=== PATIENT | male | born 1980 | race Caucasian/White ===

== ENCOUNTER 2017-05-26 23:58 | Emergency (ER) | payer SELFPAY ==
[~2017-05-26] VITALS: Ht 152.4 cm; Wt 76.9 kg
[2017-05-27 00:02] VITALS: Ht 152.4 cm; Wt 76.9 kg
[2017-05-27] MEDS ORDERED: ONDANSETRON 4 MG INJ IV STA (01:23)
[2017-05-27] MEDS ORDERED: SOD CHLORIDE 0.9% 1,000 ML IV STA (01:23)
--- NOTE | 2017-05-27 02:09 | RADRPT ---
PROCEDURE: Noncontrast CT Head. CLINICAL INDICATION: Headache TECHNIQUE: Noncontrast CT of the head was obtained. The administered radiation dose was CTDI vol = 45 mGy, DLP = 720 mGy-cm. One or more of the following dose reduction techniques were used: automate d exposure control, adjustment of the mA and/or kV according to patient size and/or use of iterative reconstruction technique. COMPARISON: No pertinent prior examinations were submitted for comparison. FINDINGS: The ventricles and sulci are within normal limits. There is no acute intracranial hemorrhage or ext ra-axial fluid collection. There is no mass effect. No midline shift is identified. There is no loss of whalen-white differentiation to suggest acute infarction. The orbits are within normal limits. The paranasal sinuses and mastoid air cells are without fluid. No destructive osseous lesion is identified. IMPRESSION: No acute findings. RPTAT: HIKT .Willy Reyez MD, MD Date Time Electronically viewed and signed by .Willy Reyez MD, MD on 05/27/2017 02:09 .T/
--- NOTE | 2017-05-27 02:18 | RADRPT ---
PROCEDURE: XR Chest. CLINICAL INDICATION: Headache. TECHNIQUE: Single frontal chest x-ray. COMPARISON: None. FINDINGS: The cardiomediastinal silhouette is unremarkable. There is no congestive heart failure.. No focal i nfiltrate is seen. There is no pleural effusion. There is no pneumothorax. The osseous structures are unremarkable. IMPRESSION: 1. No active disease. RPTAT: HMVK .Martell Farley MD, Date Time Electronically viewed and signed by .Martell Farley MD, MD on 05/27/2017 02:17 .K/
[2017-05-27] MEDS ORDERED: ONDA-43 PO (03:17)
[2017-05-27 03:28] VITALS: BP 110/63; PULSE 66; RESP 18; TEMP 98
--- NOTE | 2017-05-27 04:08 | ERD ---
ER Documentation Chief Complaint Chief Complaint vomiting off and on today. denies any abd pain. HPI This is a 36-year-old male presents to the ER with multiple complaints. Patient states that 10 AM he started feeling bad, so short of breath and vomited twice. Patient also had diarrhea however diarrhea resolved. Vomiting was nonbilious nonbloody. Patient denies any abdominal pain. He states that he feels like his arms and legs are asleep and he feels that his head is heavy patient denies any headache. Patient denies any chest pain. Shortness of breath is resolved. He has not had any fevers or chills. ROS 12 point review of systems was done, all negative except per HPI. Medications Home Meds Active Scripts Ondansetron Hcl* (Zofran*) 4 Mg Tab, 4 MG PO Q4H Y for NAUSEA AND OR VOMITING, # 8 TAB Prov:VIJAYA RAYMOND 05/27/17 Allergies Allergies: Coded Allergies: No Known Drug Allergy (Verified Allergy, Unknown, 05/27/17) PMhx/Soc Medical and Surgical Hx: pt denies Medical Hx, pt denies Surgical Hx History of Surgery: No Anesthesia Reaction: No Hx Neurological Disorder: No Hx Respiratory Disorders: No Hx Cardiac Disorders: No Hx Psychiatric Problems: No Hx Miscellaneous Medical Probl: No Hx Alcohol Use: No Hx Substance Use: No Hx Tobacco Use: No Smoking Status: Never smoker Physical Exam Vitals Vital Signs Date Time Temp Pulse Resp B/P Pulse Ox O2 Delivery O2 Flow Rate FiO2 05/27/17 03:28 98.0 66 18 110/63 99 Room Air 05/27/17 00:02 98.1 72 20 127/81 95 Physical Exam GENERAL: The patient is well developed and appropriate for usual state of health , in no apparent distress. HEENT: Atraumatic. Conjunctivae are pink. Pupils equal, round, and reactive to light. Extraocular muscles are grossly intact. Bilateral tympanic membranes are clear with no evidence of erythema, bulging or perforation. No sinus tenderness. NECK: C-spine is soft and supple. There is no cervical lymphadenopathy. CHEST: Clear to auscultation bilaterally. There are no rales, wheezes or rhonchi. HEART: Regular rate and rhythm. No murmurs, clicks, rubs or gallops. EXTREMITIES: Equal pulses bilaterally. There is no peripheral clubbing, cyanosis or edema. No focal swelling or erythema. Full range of motion. Grossly neurovascularly intact. NEURO: Alert and oriented. Cranial nerves II through XII are intact. Motor strength in all 4 extremities with 5/5 strength. Sensation grossly intact. Normal speech and gait. Negative Rhomberg. +2 DTRs. SKIN: There is no apparent rash or petechia. The skin is warm and dry. Result Diagram: 05/27/17 0201 05/27/17 0201 Results 24 hrs Laboratory Tests Test 05/27/17 02:01 White Blood Count 11.010^3/ul Red Blood Count 4.7210^6/ul Hemoglobin 14.5g/dl Hematocrit 40.7% Mean Corpuscular Volume 86.2fl Mean Corpuscular Hemoglobin 30.7pg Mean Corpuscular Hemoglobin Concent 35.6g/dl Red Cell Distribution Width 12.8% Platelet Count 44396^3/UL Mean Platelet Volume 9.9fl Neutrophils % 74.2% Lymphocytes % 20.4% Monocytes % 4.5% Eosinophils % 0.2% Basophils % 0.4% Nucleated Red Blood Cells % 0.0/100WBC Neutrophils # 8.210^3/ul Lymphocytes # 2.310^3/ul Monocytes # 0.510^3/ul Eosinophils # 0.010^3/ul Basophils # 0.010^3/ul Nucleated Red Blood Cells # 0.010^3/ul Sodium Level 141mmol/L Potassium Level 3.7mmol/L Chloride Level 103mmol/L Carbon Dioxide Level 25mmol/L Anion Gap 17 Blood Urea Nitrogen 10mg/dl Creatinine 0.80mg/dl Glucose Level 110mg/dl Calcium Level 9.5mg/dl Total Bilirubin 0.6mg/dl Direct Bilirubin 0.00mg/dl Indirect Bilirubin 0.6mg/dl Aspartate Amino Transf (AST/SGOT) 34IU/L Alanine Aminotransferase (ALT/SGPT) 69IU/L Alkaline Phosphatase 103IU/L Total Protein 8.5g/dl Albumin 4.7g/dl Globulin 3.80g/dl Albumin/Globulin Ratio 1.23 Current Medications Medications (Trade) Dose Ordered Sig/Sara Route PRN Reason Start Time Stop Time Status Last Admin Dose Admin Sodium Chloride (NS) 1,000 ml @ 1,000 mls/hr Q1H STAT IV 05/27/17 01:23 05/27/17 02:22 DC 05/27/17 01:55 Ondansetron HCl (Zofran Inj) 4 mg ONCE STAT IV 05/27/17 01:23 05/27/17 01:25 DC 05/27/17 01:[id number] [place] [address] Radiology Main Line: [phone] DIAGNOSTIC IMAGING REPORT Patient: KRYSTAL TREADWELL : 1980 Age: 36 Sex: M [id number] DOS: 05/27/17 0123 Ordering MD: VIJAYA RAYMOND PA-C Location: [facility] Room/Bed: PROCEDURE: Noncontrast CT Head. CLINICAL INDICATION: Headache TECHNIQUE: Noncontrast CT of the head was obtained. The administered radiation dose was CTDI vol = 45 mGy, DLP = 720 mGy-cm. One or more of the following dose reduction techniques were used: automated exposure control, adjustment of the mA and/or kV according to patient size and/or use of iterative reconstruction technique. COMPARISON: No pertinent prior examinations were submitted for comparison. FINDINGS: The ventricles and sulci are within normal limits. There is no acute intracranial hemorrhage or extra-axial fluid collection. There is no mass effect. No midline shift is identified. There is no loss of whalen-white differentiation to suggest acute infarction. The orbits are within normal limits. The paranasal sinuses and mastoid air cells are without fluid. No destructive osseous lesion is identified. IMPRESSION: No acute findings. RPTAT: HIKT .Willy Reyez MD, MD Date Time Electronically viewed and signed by .Willy Reyez MD, MD on 05/27/2017 02:09 .T/ CC: VIJAYA RAYMOND [facility] [id number] [place] [address] Radiology Main Line: [phone] DIAGNOSTIC IMAGING REPORT Patient: KRYSTAL TREADWELL : 1980 Age: 36 Sex: M MR #: [id number] DOS: 05/27/17 0123 Ordering MD: VIJAYA RAYMOND PA-C Location: [facility] Room/Bed: PROCEDURE: XR Chest. CLINICAL INDICATION: Headache. TECHNIQUE: Single frontal chest x-ray. COMPARISON: None. FINDINGS: The cardiomediastinal silhouette is unremarkable. There is no congestive heart failure.. No focal infiltrate is seen. There is no pleural effusion. There is no pneumothorax. The osseous structures are unremarkable. IMPRESSION: 1. No active disease. RPTAT: HMVK .Martell Farley MD, MD Date Time Electronically viewed and signed by .Martell Farley MD, MD on 05/27/2017 02:17 .K/ CC: VIJAYA RAYMOND Procedures/MDM This is a 36-year-old female presents to the ER with multiple complaints. Patient had episodes of vomiting and diarrhea which has now resolved. He also stated that his head felt heavy. Patient's physical examination is completely benign he does not have any focal neurological deficits, he is afebrile and well -appearing. Suspicion for acute intracranial pathology is low. Suspicion for meningitis or sepsis is low. In regards to patient's shortness of breath, etiology is unknown, however suspicion for pulmonary embolism is low he does not have any PERC criteria. An EKG was taken and read by T [address] elevation no T-wave inversion. Patient will be sent home with [facility]. He needs to follow-up with his primary care doctor within 1-2 days or return to ER sooner if symptoms worsen. My medical decision making sure with the patient understands and agrees with plan Departure Diagnosis: Primary Impression: Multiple complaints Condition: Stable Patient Instructions: Vomiting (7Y-Adult) Additional Instructions: Llame al doctor MAANA y brandi charu DONELL PARA DENTRO DE 1-2 SHELDON.Dgale a la secretaria que nosotros le instruimos hacer esta donell.Avise o llame si archer condicin se empeora antes de la donell. Regresa aqui si peor o no mejor. VIJAYA RAYMOND May 27, 2017 04:08
--- NOTE | 2017-05-27 04:08 | ERD ---
ER Documentation Chief Complaint Chief Complaint vomiting off and on today. denies any abd pain. HPI This is a 36-year-old male presents to the ER with multiple complaints. Patient states that 10 AM he started feeling bad, so short of breath and vomited twice. Patient also had diarrhea however diarrhea resolved. Vomiting was nonbilious nonbloody. Patient denies any abdominal pain. He states that he feels like his arms and legs are asleep and he feels that his head is heavy patient denies any headache. Patient denies any chest pain. Shortness of breath is resolved. He has not had any fevers or chills. ROS 12 point review of systems was done, all negative except per HPI. Medications Home Meds Active Scripts Ondansetron Hcl* (Zofran*) 4 Mg Tab, 4 MG PO Q4H Y for NAUSEA AND OR VOMITING, # 8 TAB Prov:VIJAYA RAYMOND 05/27/17 Allergies Allergies: Coded Allergies: No Known Drug Allergy (Verified Allergy, Unknown, 05/27/17) PMhx/Soc Medical and Surgical Hx: pt denies Medical Hx, pt denies Surgical Hx History of Surgery: No Anesthesia Reaction: No Hx Neurological Disorder: No Hx Respiratory Disorders: No Hx Cardiac Disorders: No Hx Psychiatric Problems: No Hx Miscellaneous Medical Probl: No Hx Alcohol Use: No Hx Substance Use: No Hx Tobacco Use: No Smoking Status: Never smoker Physical Exam Vitals Vital Signs Date Time Temp Pulse Resp B/P Pulse Ox O2 Delivery O2 Flow Rate FiO2 05/27/17 03:28 98.0 66 18 110/63 99 Room Air 05/27/17 00:02 98.1 72 20 127/81 95 Physical Exam GENERAL: The patient is well developed and appropriate for usual state of health , in no apparent distress. HEENT: Atraumatic. Conjunctivae are pink. Pupils equal, round, and reactive to light. Extraocular muscles are grossly intact. Bilateral tympanic membranes are clear with no evidence of erythema, bulging or perforation. No sinus tenderness. NECK: C-spine is soft and supple. There is no cervical lymphadenopathy. CHEST: Clear to auscultation bilaterally. There are no rales, wheezes or rhonchi. HEART: Regular rate and rhythm. No murmurs, clicks, rubs or gallops. EXTREMITIES: Equal pulses bilaterally. There is no peripheral clubbing, cyanosis or edema. No focal swelling or erythema. Full range of motion. Grossly neurovascularly intact. NEURO: Alert and oriented. Cranial nerves II through XII are intact. Motor strength in all 4 extremities with 5/5 strength. Sensation grossly intact. Normal speech and gait. Negative Rhomberg. +2 DTRs. SKIN: There is no apparent rash or petechia. The skin is warm and dry. Result Diagram: 05/27/17 0201 05/27/17 0201 Results 24 hrs Laboratory Tests Test 05/27/17 02:01 White Blood Count 11.010^3/ul Red Blood Count 4.7210^6/ul Hemoglobin 14.5g/dl Hematocrit 40.7% Mean Corpuscular Volume 86.2fl Mean Corpuscular Hemoglobin 30.7pg Mean Corpuscular Hemoglobin Concent 35.6g/dl Red Cell Distribution Width 12.8% Platelet Count 13946^3/UL Mean Platelet Volume 9.9fl Neutrophils % 74.2% Lymphocytes % 20.4% Monocytes % 4.5% Eosinophils % 0.2% Basophils % 0.4% Nucleated Red Blood Cells % 0.0/100WBC Neutrophils # 8.210^3/ul Lymphocytes # 2.310^3/ul Monocytes # 0.510^3/ul Eosinophils # 0.010^3/ul Basophils # 0.010^3/ul Nucleated Red Blood Cells # 0.010^3/ul Sodium Level 141mmol/L Potassium Level 3.7mmol/L Chloride Level 103mmol/L Carbon Dioxide Level 25mmol/L Anion Gap 17 Blood Urea Nitrogen 10mg/dl Creatinine 0.80mg/dl Glucose Level 110mg/dl Calcium Level 9.5mg/dl Total Bilirubin 0.6mg/dl Direct Bilirubin 0.00mg/dl Indirect Bilirubin 0.6mg/dl Aspartate Amino Transf (AST/SGOT) 34IU/L Alanine Aminotransferase (ALT/SGPT) 69IU/L Alkaline Phosphatase 103IU/L Total Protein 8.5g/dl Albumin 4.7g/dl Globulin 3.80g/dl Albumin/Globulin Ratio 1.23 Current Medications Medications (Trade) Dose Ordered Sig/Sara Route PRN Reason Start Time Stop Time Status Last Admin Dose Admin Sodium Chloride (NS) 1,000 ml @ 1,000 mls/hr Q1H STAT IV 05/27/17 01:23 05/27/17 02:22 DC 05/27/17 01:55 Ondansetron HCl (Zofran Inj) 4 mg ONCE STAT IV 05/27/17 01:23 05/27/17 01:25 DC 05/27/17 01:[id number] [place] [address] Radiology Main Line: [phone] DIAGNOSTIC IMAGING REPORT Patient: KRYSTAL TREADWELL : 1980 Age: 36 Sex: M [id number] DOS: 05/27/17 0123 Ordering MD: VIJAYA RAYMOND PA-C Location: [facility] Room/Bed: PROCEDURE: Noncontrast CT Head. CLINICAL INDICATION: Headache TECHNIQUE: Noncontrast CT of the head was obtained. The administered radiation dose was CTDI vol = 45 mGy, DLP = 720 mGy-cm. One or more of the following dose reduction techniques were used: automated exposure control, adjustment of the mA and/or kV according to patient size and/or use of iterative reconstruction technique. COMPARISON: No pertinent prior examinations were submitted for comparison. FINDINGS: The ventricles and sulci are within normal limits. There is no acute intracranial hemorrhage or extra-axial fluid collection. There is no mass effect. No midline shift is identified. There is no loss of whalen-white differentiation to suggest acute infarction. The orbits are within normal limits. The paranasal sinuses and mastoid air cells are without fluid. No destructive osseous lesion is identified. IMPRESSION: No acute findings. RPTAT: HIKT .Willy Reyez MD, MD Date Time Electronically viewed and signed by .Willy Reyez MD, MD on 05/27/2017 02:09 .T/ CC: VIJAYA RAYMOND [facility] [address] [place] [address] Radiology Main Line: [phone] DIAGNOSTIC IMAGING REPORT Patient: KRYSTAL TREADWELL : 1980 Age: 36 Sex: M MR #: [id number] DOS: 05/27/17 0123 Ordering MD: VIJAYA RAYMOND PA-C Location: [facility] Room/Bed: PROCEDURE: XR Chest. CLINICAL INDICATION: Headache. TECHNIQUE: Single frontal chest x-ray. COMPARISON: None. FINDINGS: The cardiomediastinal silhouette is unremarkable. There is no congestive heart failure.. No focal infiltrate is seen. There is no pleural effusion. There is no pneumothorax. The osseous structures are unremarkable. IMPRESSION: 1. No active disease. RPTAT: HMVK .Martell Farley MD, MD Date Time Electronically viewed and signed by .Martell Farley MD, MD on 05/27/2017 02:17 .K/ CC: VIJAYA RAYMOND Procedures/MDM This is a 36-year-old female presents to the ER with multiple complaints. Patient had episodes of vomiting and diarrhea which has now resolved. He also stated that his head felt heavy. Patient's physical examination is completely benign he does not have any focal neurological deficits, he is afebrile and well -appearing. Suspicion for acute intracranial pathology is low. Suspicion for meningitis or sepsis is low. In regards to patient's shortness of breath, etiology is unknown, however suspicion for pulmonary embolism is low he does not have any PERC criteria. An EKG was taken and read by T [address] elevation no T-wave inversion. Patient will be sent home with [facility]. He needs to follow-up with his primary care doctor within 1-2 days or return to ER sooner if symptoms worsen. My medical decision making sure with the patient understands and agrees with plan Departure Diagnosis: Primary Impression: Multiple complaints Condition: Stable Patient Instructions: Vomiting (7Y-Adult) Additional Instructions: Llame al doctor MAANA y brandi charu DONELL PARA DENTRO DE 1-2 SHELDON.Dgale a la secretaria que nosotros le instruimos hacer esta donell.Avise o llame si archer condicin se empeora antes de la donell. Regresa aqui si peor o no mejor. VIJAYA RAYMOND May 27, 2017 04:08
--- NOTE | 2017-05-27 04:08 | ERD ---
ER Documentation Chief Complaint Chief Complaint vomiting off and on today. denies any abd pain. HPI This is a 36-year-old male presents to the ER with multiple complaints. Patient states that 10 AM he started feeling bad, so short of breath and vomited twice. Patient also had diarrhea however diarrhea resolved. Vomiting was nonbilious nonbloody. Patient denies any abdominal pain. He states that he feels like his arms and legs are asleep and he feels that his head is heavy patient denies any headache. Patient denies any chest pain. Shortness of breath is resolved. He has not had any fevers or chills. ROS 12 point review of systems was done, all negative except per HPI. Medications Home Meds Active Scripts Ondansetron Hcl* (Zofran*) 4 Mg Tab, 4 MG PO Q4H Y for NAUSEA AND OR VOMITING, # 8 TAB Prov:VIJAYA RAYMOND 05/27/17 Allergies Allergies: Coded Allergies: No Known Drug Allergy (Verified Allergy, Unknown, 05/27/17) PMhx/Soc Medical and Surgical Hx: pt denies Medical Hx, pt denies Surgical Hx History of Surgery: No Anesthesia Reaction: No Hx Neurological Disorder: No Hx Respiratory Disorders: No Hx Cardiac Disorders: No Hx Psychiatric Problems: No Hx Miscellaneous Medical Probl: No Hx Alcohol Use: No Hx Substance Use: No Hx Tobacco Use: No Smoking Status: Never smoker Physical Exam Vitals Vital Signs Date Time Temp Pulse Resp B/P Pulse Ox O2 Delivery O2 Flow Rate FiO2 05/27/17 03:28 98.0 66 18 110/63 99 Room Air 05/27/17 00:02 98.1 72 20 127/81 95 Physical Exam GENERAL: The patient is well developed and appropriate for usual state of health , in no apparent distress. HEENT: Atraumatic. Conjunctivae are pink. Pupils equal, round, and reactive to light. Extraocular muscles are grossly intact. Bilateral tympanic membranes are clear with no evidence of erythema, bulging or perforation. No sinus tenderness. NECK: C-spine is soft and supple. There is no cervical lymphadenopathy. CHEST: Clear to auscultation bilaterally. There are no rales, wheezes or rhonchi. HEART: Regular rate and rhythm. No murmurs, clicks, rubs or gallops. EXTREMITIES: Equal pulses bilaterally. There is no peripheral clubbing, cyanosis or edema. No focal swelling or erythema. Full range of motion. Grossly neurovascularly intact. NEURO: Alert and oriented. Cranial nerves II through XII are intact. Motor strength in all 4 extremities with 5/5 strength. Sensation grossly intact. Normal speech and gait. Negative Rhomberg. +2 DTRs. SKIN: There is no apparent rash or petechia. The skin is warm and dry. Result Diagram: 05/27/17 0201 05/27/17 0201 Results 24 hrs Laboratory Tests Test 05/27/17 02:01 White Blood Count 11.010^3/ul Red Blood Count 4.7210^6/ul Hemoglobin 14.5g/dl Hematocrit 40.7% Mean Corpuscular Volume 86.2fl Mean Corpuscular Hemoglobin 30.7pg Mean Corpuscular Hemoglobin Concent 35.6g/dl Red Cell Distribution Width 12.8% Platelet Count 59180^3/UL Mean Platelet Volume 9.9fl Neutrophils % 74.2% Lymphocytes % 20.4% Monocytes % 4.5% Eosinophils % 0.2% Basophils % 0.4% Nucleated Red Blood Cells % 0.0/100WBC Neutrophils # 8.210^3/ul Lymphocytes # 2.310^3/ul Monocytes # 0.510^3/ul Eosinophils # 0.010^3/ul Basophils # 0.010^3/ul Nucleated Red Blood Cells # 0.010^3/ul Sodium Level 141mmol/L Potassium Level 3.7mmol/L Chloride Level 103mmol/L Carbon Dioxide Level 25mmol/L Anion Gap 17 Blood Urea Nitrogen 10mg/dl Creatinine 0.80mg/dl Glucose Level 110mg/dl Calcium Level 9.5mg/dl Total Bilirubin 0.6mg/dl Direct Bilirubin 0.00mg/dl Indirect Bilirubin 0.6mg/dl Aspartate Amino Transf (AST/SGOT) 34IU/L Alanine Aminotransferase (ALT/SGPT) 69IU/L Alkaline Phosphatase 103IU/L Total Protein 8.5g/dl Albumin 4.7g/dl Globulin 3.80g/dl Albumin/Globulin Ratio 1.23 Current Medications Medications (Trade) Dose Ordered Sig/Sara Route PRN Reason Start Time Stop Time Status Last Admin Dose Admin Sodium Chloride (NS) 1,000 ml @ 1,000 mls/hr Q1H STAT IV 05/27/17 01:23 05/27/17 02:22 DC 05/27/17 01:55 Ondansetron HCl (Zofran Inj) 4 mg ONCE STAT IV 05/27/17 01:23 05/27/17 01:25 DC 05/27/17 01:[id number] [place] [address] Radiology Main Line: [phone] DIAGNOSTIC IMAGING REPORT Patient: KRYSTAL TREADWELL : 1980 Age: 36 Sex: M [id number] DOS: 05/27/17 0123 Ordering MD: VIJAYA RAYMOND PA-C Location: [facility] Room/Bed: PROCEDURE: Noncontrast CT Head. CLINICAL INDICATION: Headache TECHNIQUE: Noncontrast CT of the head was obtained. The administered radiation dose was CTDI vol = 45 mGy, DLP = 720 mGy-cm. One or more of the following dose reduction techniques were used: automated exposure control, adjustment of the mA and/or kV according to patient size and/or use of iterative reconstruction technique. COMPARISON: No pertinent prior examinations were submitted for comparison. FINDINGS: The ventricles and sulci are within normal limits. There is no acute intracranial hemorrhage or extra-axial fluid collection. There is no mass effect. No midline shift is identified. There is no loss of whalen-white differentiation to suggest acute infarction. The orbits are within normal limits. The paranasal sinuses and mastoid air cells are without fluid. No destructive osseous lesion is identified. IMPRESSION: No acute findings. RPTAT: HIKT .Willy Reyez MD, MD Date Time Electronically viewed and signed by .Willy Reyez MD, MD on 05/27/2017 02:09 .T/ CC: VIJAYA RAYMOND [facility] [id number] [place] [address] Radiology Main Line: [phone] DIAGNOSTIC IMAGING REPORT Patient: KRYSTAL TREADWELL : 1980 Age: 36 Sex: M MR #: [id number] DOS: 05/27/17 0123 Ordering MD: VIJAYA RAYMOND PA-C Location: [facility] Room/Bed: PROCEDURE: XR Chest. CLINICAL INDICATION: Headache. TECHNIQUE: Single frontal chest x-ray. COMPARISON: None. FINDINGS: The cardiomediastinal silhouette is unremarkable. There is no congestive heart failure.. No focal infiltrate is seen. There is no pleural effusion. There is no pneumothorax. The osseous structures are unremarkable. IMPRESSION: 1. No active disease. RPTAT: HMVK .Martell Farley MD, MD Date Time Electronically viewed and signed by .Martell Farley MD, MD on 05/27/2017 02:17 .K/ CC: VIJAYA RAYMOND Procedures/MDM This is a 36-year-old female presents to the ER with multiple complaints. Patient had episodes of vomiting and diarrhea which has now resolved. He also stated that his head felt heavy. Patient's physical examination is completely benign he does not have any focal neurological deficits, he is afebrile and well -appearing. Suspicion for acute intracranial pathology is low. Suspicion for meningitis or sepsis is low. In regards to patient's shortness of breath, etiology is unknown, however suspicion for pulmonary embolism is low he does not have any PERC criteria. An EKG was taken and read by T [address] elevation no T-wave inversion. Patient will be sent home with [facility]. He needs to follow-up with his primary care doctor within 1-2 days or return to ER sooner if symptoms worsen. My medical decision making sure with the patient understands and agrees with plan Departure Diagnosis: Primary Impression: Multiple complaints Condition: Stable Patient Instructions: Vomiting (6Y-Adult) Additional Instructions: Llame al doctor MAANA y brandi charu DONELL PARA DENTRO DE 1-2 SHELDON.Dgale a la secretaria que nosotros le instruimos hacer esta donell.Avise o llame si archer condicin se empeora antes de la donell. Regresa aqui si peor o no mejor. VIJAYA RAYMOND May 27, 2017 04:08
== END 2017-05-27 03:34 | disposition home or self-care (01) ==
LOC: FTE 23:58
DX: R11.10 Vomiting, unspecified (principal); R06.02 Shortness of breath; R19.7 Diarrhea, unspecified; R51 Headache
CPT/HCPCS: 36415; 70450; 71010; 80053; 85025; 93005; 96374; 99285; J2405; J7030

== ENCOUNTER 2017-07-24 23:53 | Emergency (ER) | END 2017-07-25 07:10 | disposition home or self-care (01) ==